=== PATIENT | female | born 1950 | race Caucasian/White ===

== ENCOUNTER → 2021-01-07 23:15 | Outpatient (CLI) | payer MEDICARE, OTHER, SELFPAY ==
[2021-01-07 18:58] VITALS: BMI 30.1
[2021-01-07 23:17] LABS: Lyme Ab Screen Interpretation REF LAB
[2021-01-10 11:52] LABS: Lyme Scn Total Ab w/Rflx <0.91 ISR (0.00-0.90)
== END ==
PROVIDERS: PCP Nurse Practitioner; Referring Provider Nurse Practitioner; Visit Provider Nurse Practitioner
DX: T14.8XXA Other injury of unspecified body region, initial encounter (principal); W57.XXXA Bitten or stung by nonvenomous insect and other nonvenomous arthropods, initial encounter
CPT/HCPCS: 86618